=== PATIENT | male | born 1935 | race Caucasian/White ===

== ENCOUNTER 2022-07-16 15:40 | Emergency (ER) | payer BC ==
[~2022-07-16] VITALS: Ht 157.5 cm; Wt 60.0 kg
[2022-07-16 15:46] VITALS: BP 142/49
[2022-07-16] MEDS ORDERED: LIDOCAINE HCL/PF 1% 10 MG/ML 5ML VIAL INFIL ONE (17:30)
[2022-07-16] MEDS ORDERED: BACITRACIN ZINC OINT UDPKT TOP ONE (17:30)
[2022-07-16] MEDS ORDERED: SULF1TAB48 MT (19:08)
[2022-07-16] MEDS ORDERED: CEPH500C2 MT (19:08)
[2022-07-16] MEDS ORDERED: CEFTRIAXONE SODIUM 500 MG/VIAL IM ONE (19:15)
== END 2022-07-16 19:35 | disposition home or self-care (01) ==
LOC: ER 15:40
DX: M71.022 Abscess of bursa, left elbow (principal); E78.00 Pure hypercholesterolemia, unspecified; I10 Essential (primary) hypertension
CPT/HCPCS: 10060; 96372; 99283; J0696; J3490